=== PATIENT | male | born 1990 | race Caucasian/White ===

== ENCOUNTER 2018-05-18 00:07 | Emergency (ER) | payer OTHER ==
[2018-05-18 00:13] VITALS: BP 146/79
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
== END 2018-05-18 01:10 | disposition left against medical advice (07) ==
DX: S06.0X0A Concussion without loss of consciousness, initial encounter (principal); V00.321A Fall from snow-skis, initial encounter; Y93.23 Activity, snow (alpine) (downhill) skiing, snowboarding, sledding, tobogganing and snow tubing; Y92.838 Other recreation area as the place of occurrence of the external cause

== ENCOUNTER → 2018-05-20 | Outpatient (CLI) | payer OTHER | LOC: BMCIMAGING 13:49 | PROVIDERS: ATTEND Family Medicine | DX: R07.9 Chest pain, unspecified (principal); M43.8X2 Other specified deforming dorsopathies, cervical region ==